=== PATIENT | male | born 1940 | race Caucasian/White ===

== ENCOUNTER → 2023-10-25 15:39 | Outpatient (REF) | payer MEDICARE, OTHER, SELFPAY | LOC: RCS 15:39 | PROVIDERS: ATTENDING PHYSICIAN Internal Medicine Cardiovascular Disease; FAMILY PHYSICIAN Family Medicine | DX: I05.9 Rheumatic mitral valve disease, unspecified (principal) | CPT/HCPCS: 93306 ==

== ENCOUNTER → 2024-01-10 08:35 | Outpatient (REF) | payer MEDICARE, OTHER, SELFPAY ==
[2024-01-10 12:47] LABS: ALT (SGPT) 20 U/L (0-50); AST (SGOT) 30 U/L (17-59); Albumin 3.9 g/dl (3.5-5.0); Alkaline Phosphatase 79 U/L (38-126); Blood Urea Nitrogen 36 mg/dl (9-20); Carbon Dioxide 28 mmol/L (22-30); Chloride 103 mmol/L (98-107); Glucose 125 mg/dl (70-99); HDL Cholesterol 58 mg/dl; LDL Cholesterol, Calculated 56 mg/dl; Potassium 4.2 mmol/L (3.5-5.1); Sodium 138 mmol/L (135-145); Total Bilirubin 0.6 mg/dl (0.2-1.3); Total Cholesterol 124 mg/dl (50-199); Triglyceride 52 mg/dl (10-149); Very Low Density Lipoprotein 10 mg/dl (0-30); eGFR 54.85
[2024-01-10 13:01] LABS: Microalbumin, Random Urine 9.7 mg/dl (0.6-1.7); Microalbumin/creatinine Ratio 104.1 mg/g
[2024-01-10 13:12] LABS: TSH 2.06 uIU/ml (0.47-4.68)
[2024-01-10 13:21] LABS: Glycohemoglobin (HgbA1c) 6.5 % (4.0-5.6)
== END ==
LOC: HWLAB 08:35
PROVIDERS: ATTENDING PHYSICIAN Family Medicine
DX: I12.9 Hypertensive chronic kidney disease with stage 1 through stage 4 chronic kidney disease, or unspecified chronic kidney disease (principal); N18.31 Chronic kidney disease, stage 3a; I50.9 Heart failure, unspecified; E78.00 Pure hypercholesterolemia, unspecified; I48.0 Paroxysmal atrial fibrillation; E11.59 Type 2 diabetes mellitus with other circulatory complications
CPT/HCPCS: 36415; 80053; 80061; 82043; 82570; 83036; 84443

== ENCOUNTER → 2024-02-21 11:52 | Outpatient (REF) | payer MEDICARE, OTHER, SELFPAY | LOC: HWRAD 11:52 | PROVIDERS: ATTENDING PHYSICIAN Family Medicine | DX: S20.211A Contusion of right front wall of thorax, initial encounter (principal); I48.0 Paroxysmal atrial fibrillation; I50.9 Heart failure, unspecified; W19.XXXA Unspecified fall, initial encounter | CPT/HCPCS: 71046; 71100 ==

== ENCOUNTER 2024-04-15 09:12 | Emergency (ER) | payer MEDICARE, OTHER, SELFPAY ==
[2024-04-15 09:15] VITALS: BP 126/91
--- NOTE | 2024-04-15 09:49 | ED.GENMED ---
History of Present Illness
General
Chief Complaint: Head Injury
Source: patient
Exam Limitations: none
Time Seen by Provider: 04/15/24 09:36
History of Present Illness
History of Present Illness:
83-year-old male on [place] presents after trip and fall. He was on his way into the car knocker office to get his toenails cut. He hit his head on the sidewalk. No loss conscious. He denies headache or neck pain. He scraped his forehead and his
right hand. No other complaints at this time
Past History
Past History
ED Past Medical History: Arrthythmia, COPD, CVA (with Aphasia), HTN, Hypercholesterolemia (Diet-controlled), Valvular disease and Other (Macular degeneration, aortic stenosis)
ED Past Surgical History: Cardiac (Valve replacement) and Other (Cardiac catheterization in April 2012)
Social History
Tobacco: Former smoker
Alcohol: Occasional
Drug: None
Personal:
Living: with family
Employment: Employed
Phy Exam
Physical Exam
Physical Exam:
General: Well-appearing male no acute respiratory distress
HEENT: Normocephalic superficial abrasion noted to the right side of the forehead. Mild surrounding ecchymosis. Pupils equal round reactive to light
Heart: Regular rate and rhythm
Lungs: Clear no wheeze
Musculoskeletal exam: The spine is nontender. The right wrist is nontender the hand is not deformed or tender.
Neurologic exam: Alert and oriented no facial asymmetry conversing appropriately
Course
Orders/Labs/Results
Orders:
Orders
04/15/24 09:[address] [CT Head W/o Iv Contrast] Urgent
Comment:
Reason For Exam: fall, head strike
Vital Signs
Initial and Last Documented VS:
Initial Vital Signs
Temp Pulse Resp BP Pulse Ox
97.7 F 60 16 126/91 98
04/15/24 09:15 04/15/24 09:15 04/15/24 09:15 04/15/24 09:15 04/15/24 09:15
Last Documented Vital Signs
Temp Pulse Resp BP Pulse Ox
97.7 F 60 16 126/91 98
04/15/24 09:15 04/15/24 09:15 04/15/24 09:15 04/15/24 09:15 04/15/24 09:15
MDM/Problems Addressed
Differential Diagnosis Includes:
Mechanical fall head strike on Xarelto. Consider skull fracture first intracranial hemorrhage versus contusion. Also has a skin tear to the right hand. The abrasions on the forehead were irrigated and treated with a Band-Aid. The right hand skin
tear was also irrigated and dressed. CT of the head was ordered through triage which I reviewed personally and demonstrates no acute skull fracture or intracranial hemorrhage. Reassured patient and significant other. Stable for discharge
*Critical Care Note
Total Time (30-74mins, 75-104mins- exclusive of procedures): Not Applicable
ED Attending Note
-
Portions of this chart may have been created with voice recognition software.� Occasional wrong word or��sound alike� substitutions may have occurred due to the inherent limitations of voice recognition software.
Discharge Plan
Departure
Patient Disposition: Home (Routine Discharge)
Date of Disposition: 04/15/24
Time of Disposition: 09:53
Patient with high blood pressure during this ER visit?: No
Discharge Problem:
Contusion
Instructions: Contusion (DC)
Prescriptions:
No Action
Vision Formula (with lutein) 1 EACH tablet
1 ea PO BID
losartan 50 MG tablet
50 mg PO DAILY
amlodipine 5 MG tablet
5 mg PO DAILY
Xarelto 20 MG tablet
20 mg PO QPM
atorvastatin 40 MG tablet
40 mg PO QPM
aspirin 81 MG tablet,chewable
81 mg PO DAILY
ferrous sulfate 325 mg (65 mg iron) Tablet,Delayed Release (Dr/Ec)
325 mg PO DAILY
furosemide 40 MG tablet
40 mg PO QPM
ceftriaxone 2 gram Recon Soln
2,000 mg IV Q12H Qty: 0 0RF
metoprolol succinate 25 mg Tablet Extended Release 24 Hr
25 mg PO DAILY Qty: 30 0RF
Activity Restrictions/Additional Instructions:
Apply antibacterial into the wounds. Change dressing as needed. Use Tylenol if needed for pain. Return if worse otherwise follow-up with your doctor
Discharge Date and Time
Print Language: MAURITANIAN
[2024-04-15 10:26] VITALS: BP 136/78
== END 2024-04-15 10:26 | disposition home or self-care (01) ==
LOC: EMR 09:12
PROVIDERS: EMERGENCY PHYSICIAN Student in an Organized Health Care Education/Training Program; FAMILY PHYSICIAN Family Medicine
DX: S00.83XA Contusion of other part of head, initial encounter (principal); S61.411A Laceration without foreign body of right hand, initial encounter; S00.81XA Abrasion of other part of head, initial encounter; W01.0XXA Fall on same level from slipping, tripping and stumbling without subsequent striking against object, initial encounter; E78.00 Pure hypercholesterolemia, unspecified; I10 Essential (primary) hypertension; J44.9 Chronic obstructive pulmonary disease, unspecified; Z79.01 Long term (current) use of anticoagulants; I69.920 Aphasia following unspecified cerebrovascular disease; Z95.2 Presence of prosthetic heart valve; Z87.891 Personal history of nicotine dependence
CPT/HCPCS: 99284; 70450

== ENCOUNTER 2024-10-08 18:15 | Inpatient (IN) | payer MEDICARE, OTHER, SELFPAY ==
[2024-10-08] VITALS (11 sets, daily range): BP systolic 106–182; BP diastolic 50–79; PULSE 56; O2SAT 97; BMI 35.0; BMI 37.9
[2024-10-08 11:58] LABS: % Basophils 0.3 % (0-2); % Immature Granulocytes 0.5 % (0-0.5); % Lymphocytes 9.5 % (20.5-51.1); % Monocytes 9.3 % (1.7-9.3); % Neutrophils 80.4 % (42.2-75.2); Absolute Lymphocytes 0.7 10^3/uL (1.2-3.4); Absolute Monocytes 0.7 10^3/uL (0.1-0.6); Absolute Neutrophils 5.9 10^3/uL (1.4-6.5); Hematocrit 35.6 % (39.0-52.0); Hemoglobin 11.6 g/dL (13.0-18.0); Mean Corp Hgb Conc. 32.6 g/dL (33.0-37.0); Mean Corpuscular Hgb 31.3 pg (27.0-31.0); Mean Platelet Volume 9.5 fL (7.4-10.4); Nucleated Red Blood Cells % 0 % (-); Platelet Count 259 10^3/uL (130-400); Red Blood Cell Count 3.71 10^6/uL (4.70-6.10); White Blood Cell Count 7.4 10^3/uL (4.8-10.8)
[2024-10-08 12:09] LABS: ALT (SGPT) 14 U/L (0-50); AST (SGOT) 21 U/L (17-59); Albumin 3.5 g/dl (3.5-5.0); Alkaline Phosphatase 81 U/L (38-126); Blood Urea Nitrogen 20 mg/dl (9-20); Calcium 8.9 mg/dl (8.4-10.2); Carbon Dioxide 26 mmol/L (22-30); Chloride 111 mmol/L (98-107); Glucose 130 mg/dl (70-99); Potassium 4.2 mmol/L (3.5-5.1); Sodium 143 mmol/L (135-145); Total Bilirubin 1.1 mg/dl (0.2-1.3); Total Protein 6.6 g/dl (6.3-8.2); eGFR > 60.00
[2024-10-08 12:14] LABS: NT-proBNP 1480 pg/ml
--- NOTE | 2024-10-08 12:28 | ED.GENMED ---
History of Present Illness
General
Chief Complaint: Swelling
Source: patient and spouse
Exam Limitations: none
Time Seen by Provider: 10/08/24 12:09
History of Present Illness
History of Present Illness:
84yoM with a history of atrial fibrillation, CHF, coronary artery disease, hypertension, hyperlipidemia, COPD presenting with his for evaluation of bilateral knee pain. He has been having ongoing knee pain for at least 6 months. He has seen
orthopedics and received gel and steroid injections without any improvement. He was told at one point that he would need a knee replacement. He is scheduled to see Dr. Nolan in 2 days. He is taking Percocet without any relief and is having
significant trouble ambulating at this point due to his pain. He is also been experiencing bilateral leg swelling over the past week. He has prescribed Lasix 40 mg twice daily but states he is noncompliant at times. He denies any weight
gain, orthopnea, shortness of breath, cough.
Past History
Past History
ED Past Medical History: Arrthythmia, COPD, CVA (with Aphasia), HTN, Hypercholesterolemia (Diet-controlled), Valvular disease and Other (Macular degeneration, aortic stenosis)
ED Past Surgical History: Cardiac (Valve replacement) and Other (Cardiac catheterization in April 2012)
Social History
Tobacco: Former smoker
Alcohol: Occasional
Drug: None
Personal:
Living: with family
Employment: Employed
Phy Exam
General Physical Exam
General Presentation: well appearing and no apparent distress
General Skin: warm and dry
General Habitus: normal and elderly
General Mental: alert
ENT Exam
ENT Exam: normocephalic
Cardiovascular Exam
Cardiovascular Exam: normal peripheral pulses (2+ DP pulses bilaterally), bradycardia, irregularly irregular and other (2-3+ pitting edema to bilateral lower extremities)
Pulmonary Exam
Pulmonary Exam: lungs clear, no respiratory distress, no rales, no crackles, no rhonchi and no wheezing
Neurological Exam
Neurological Exam: alert
[place] Coma Scale
Eye Opening: Spontaneous
Verbal Response: Oriented
Motor Response: Obeys Commands
GCS Total Score: 15
Musculoskeletal Exam
Musculoskeletal Exam: other (Mild swelling noted to R knee. No erythema or warmth. ROM of both knees intact. )
Skin Exam
Skin Exam: warm/dry
Psychiatric Exam
Psychiatric Exam: normal mood/affect
Scores
Heart Failure Risk
Heart Failure Risk Score: Not Applicable
Course
Orders/Labs/Results
Orders:
Orders
10/08/24 11:23
Complete Blood Count/With Diff Urgent
Comprehensive Metabolic Panel Urgent
NT-proBNP Urgent
10/08/24 12:26
Oxycodone/Acetaminophen [Percocet 5/325] 1 tablet PO NOW STA
CR Knee - Left 4 Or More View* Urgent
Comment:
Reason For Exam: pain
CR Knee- Right 4 Or More View* Urgent
Comment:
Reason For Exam: pain
10/08/24 12:27
CR Chest - 2 Views Urgent
Comment:
Reason For Exam: leg swelling
10/08/24 13:43
Pt Eval And Treat Urgent
Activity Level: Out of Bed- Ad Katty
10/08/24 14:08
Electrocardiogram (*1) Urgent
Reason for Study: Bradycardia / Tachycardia
EKG- Treatment ONCE
10/08/24 16:30
Furosemide [Lasix] 40 mg IV NOW STA
10/08/24 17:09
Admit/Transfer Patient As Directed
Co-Sign Provider:
Level of Care: Inpatient admission
Assign to:: Telemetry
Physician / Group: Chanelel
Diagnosis: CHF exacerbation
Reason for Telemetry: Acute Heart Failure
Date to Stop Telemetry: 10/11/24
Time to Stop Telemetry: 11:00
Reason for Hospitalization: IV Lasix, cardio consult
Expected length of stay greater than two midnights?: Yes
ELOS- Estimated Length of Stay in days: 3
I certify the patient meets the requirements for IP care: Yes
PRN Pain Medication Management As Directed
May give lesser potent ordered pain med per pt: Yes
preference::
Protocol:: Medication orders for pain may be administered in a
manner that supports deferring to patient preference
when the pt is:
- Requesting an ordered lesser potent pain medication.
Least to most potent pain medications are defined
as: acetaminophen < NSAID < tramadol < opioids
(morphine, oxycodone, hydromorphone).
- Requesting a lesser dose of the same medication IF
ORDERED.
- Requesting a less intrusive route of administration
if both routes are prescribed by the provider (PO <
IV).
10/08/24 17:11
Code Status As Directed
Resuscitation Status: Do not resuscitate
Reached after discussion with pt or family/Healthcare POA: Yes
DNR Bracelet Application ONCE
10/11/24 11:00
DC Protocol for Telemetry ONCE
Abnormal Lab Results
10/08/24
11:23
RBC 3.71 L 10^6/uL
(4.70-6.10)
Hgb 11.6 L g/dL
(13.0-18.0)
Hct 35.6 L %
(39.0-52.0)
MCV 96.0 H fL
(80.0-94.0)
MCH 31.3 H pg
(27.0-31.0)
MCHC 32.6 L g/dL
(33.0-37.0)
Absolute Lymphs (auto) 0.7 L 10^3/uL
(1.2-3.4)
Absolute Monos (auto) 0.7 H 10^3/uL
(0.1-0.6)
Neutrophils % 80.4 H %
(42.2-75.2)
Lymphocytes % 9.5 L %
(20.5-51.1)
Chloride 111 H mmol/L
(98-107)
Glucose 130 H mg/dl
(70-99)
10/08/24 11:23
10/08/24 11:23
Vital Signs
Initial and Last Documented VS:
Initial Vital Signs
Temp Pulse Resp BP Pulse Ox
97.9 F 68 18 140/50 96
10/08/24 11:11 10/08/24 11:11 10/08/24 11:11 10/08/24 11:11 10/08/24 11:11
Last Documented Vital Signs
Temp Pulse Resp BP Pulse Ox
97.9 F 55 20 150/61 95
10/08/24 11:11 10/08/24 18:00 10/08/24 18:00 10/08/24 18:00 10/08/24 18:00
MDM/Problems Addressed
Differential Diagnosis Includes:
84yoM here with bilateral leg swelling and worsening bilateral knee pain with difficulty ambulating. There is 2-3+ pitting edema noted to bilateral lower extremities. DP pulses palpable. Differential diagnosis includes but is not limited to: CHF
exacerbation, dependent edema, osteoarthritis, doubt DVT given bilateral symptoms and he is anticoagulated
Initial ED plan: Check CBC, CMP, BNP, CXR, and bilateral knee x-rays. Percocet for pain. Will consult PT.
*EKG
Interpreted by ED Provider?: Yes
EKG Intrepretation Date: 10/08/24
Heart Rate: 53
Rate: bradycardiac
Rhythm: a-fib
[place]: left axis deviation
Interval: normal interval
QRS Pattern: normal QRS
Ischemia: no ischemia
*Critical Care Note
Total Time (30-74mins, 75-104mins- exclusive of procedures): Not Applicable
Update Note
Update Note:
BNP 1480. Renal function stable. No pulmonary edema on CXR. Knee x-rays show osteoarthritis. Patient bradycardic throughout ED course with HR in the 50s. HR intermittently drops to the 30-40 range. BP stable and he denies dizziness. EKG added which
shows slow afib without heart block. 40mg IV Lasix ordered and patient admitted for further management.
ED Attending Note
-
Portions of this chart may have been created with voice recognition software.� Occasional wrong word or��sound alike� substitutions may have occurred due to the inherent limitations of voice recognition software.
Discharge Plan
Departure
Patient Disposition: Admit
Date of Disposition: 10/08/24
Time of Disposition: 16:33
Presentation/result/management discussed w/ accepting MD/DO: Hospitalist
Discharge Problem:
Acute exacerbation of CHF (congestive heart failure), Bradycardia
Interventions
Interventions:
*Risk Screen - Suicide Last Done: 10/08/24 11:11
*General Assessment Last Done: 10/08/24 13:08
*Neglect/Abuse Screening Last Done: 10/08/24 11:11
*ED- Fall Risk Assessment Last Done: 10/08/24 13:08
*ED COVID-19 Vaccine History Last Done: 10/08/24 13:08
*Nursing Disposition Last Done: 10/08/24 18:22
ED- Cardiac Assessment Last Done: 10/08/24 13:12
ED- Pulmonary Assessment Last Done: 10/08/24 13:12
ED-Skin Assessment Last Done: 10/08/24 13:12
Discharge Date and Time
Discharge Date/Time: 10/08/24 18:22
[2024-10-08] MEDS: PERCOCET 5/325 1 TABLET PO (13:04)
--- NOTE | 2024-10-08 15:54 | EDRN ---
PT in room w/pt at this time.
--- NOTE | 2024-10-08 16:50 | EDRN ---
hvac controls technician Marissa was in to do med rec w/ pt and spouse.
--- NOTE | 2024-10-08 16:50 | EDRN ---
Pt OOB to BR at this time w/ walker, Minimal assist.
--- NOTE | 2024-10-08 16:55 | EDRN ---
Dr. Stevenson in room w/pt at this time.
--- NOTE | 2024-10-08 17:13 | HPS.HSE ---
Family Physician
-
Family Physician: Kana Farias
Chief Complaint
-
Lower extremity swelling, bilateral knee pain
History of Present Illness
84-year-old male with increasing bilateral lower extremity edema and difficulty ambulating with bilateral knee pain. Symptoms have been progressing for the past few weeks. He is a poor historian and he is accompanied by his .
Recently came back up here from [place] and has had difficulty going up and down steps in his home.
Denies chest pain or shortness of breath.
Does sleep in a recliner as he is uncomfortable lying down flat. However, denies orthopnea.
Medical History
Past Medical History
Past Medical History: Reports Other
Additional Past Medical History:
Permanent atrial fibrillation
Diastolic heart failure
CAD
Essential hypertension
Hyperlipidemia
COPD
Stroke
Aortic stenosis
DM2
NAYAN
GERD
Vascular dementia
Past Surgical History: Reports Other
Additional Past Surgical History:
TAVR
Social History
Tobacco: Former Smoker
Alcohol: Occasional
Drug: None
Personal:
Living: With Family
Employment: Not Employed
Family History
Family History: Not pertinent
Allergies / Home Medications
Allergies reflects when Allergies were last updated in [facility].
Home Medications with original date entered in [facility]
Allergy/Medication List:
Allergies
Allergy/AdvReac Type Severity Reaction Status Date / Time
No Known Allergies Allergy Verified 10/08/24 11:15
Home Medications
amlodipine 5 mg tablet 5 mg PO DAILY Blood pressure 11/09/20
aspirin 81 mg chewable tablet 81 mg PO DAILY Blood clot prevention/tx 11/09/20
atorvastatin 40 mg tablet 40 mg PO DAILY High cholesterol 11/09/20
losartan 50 mg tablet 50 mg PO DAILY Blood pressure 11/09/20
rivaroxaban 20 mg tablet (Xarelto) 20 mg PO DAILY Blood clot prevention/tx 11/09/20
ferrous sulfate 325 mg (65 mg iron) tablet,delayed release 325 mg PO DAILY Supplement 03/28/22
furosemide 40 mg tablet 40 mg PO DAILY Heart Failure 03/28/22
metoprolol succinate 25 mg tablet,extended release 24 hr 25 mg PO DAILY #30 tabs 04/01/22
magnesium hydroxide 400 mg/5 mL oral suspension (Brand Milk of Magnesia) 800 mg PO DAILYPRN PRN constipation 10/08/24
memantine 5 mg tablet 5 mg PO DAILY 10/08/24
metformin 500 mg tablet 500 mg PO DAILY 10/08/24
oxycodone-acetaminophen 5 mg-325 mg tablet 1 tab PO Q6HPRN PRN severe pain 10/08/24
Review of Systems
-
History Source: Patient and Family
A 12 point ROS was completed and negative except as noted: Yes
Physical Exam
Vital Signs
Vital Signs
Temp Pulse Resp BP Pulse Ox
97.9 F 66 18 151/70 99
10/08/24 11:11 10/08/24 16:15 10/08/24 16:15 10/08/24 15:18 10/08/24 16:15
Physical Exam
General: Well Developed, Well Nourished, No Apparent Distress, Comfortable and Obese
HEENT: NormoCephalic, Anicteric and Moist mucous membranes
Respiratory: Clear
Cardiac: S1/S2 and Regular Rhythm
GI: Soft, Non Tender and Non Distended
Genito-urinary: Deferred by me
Musculoskeletal: No Clubbing, No Cyanosis, Edema, Left Lower Extremity and Edema, Right Lower Extremity
Skin: Warm, Dry and Other (Bilateral lower extremity hyperpigmentation)
Neuro: Awake, Alert and Oriented
Hematologic/Lymphatic: No Lymphadenopathy
Psych: Calm
Laboratory Results
-
10/08/24 11:23
10/08/24 11:23
Laboratory Results
Total Bilirubin 1.1 mg/dl (0.2-1.3) 10/08/24 11:23
AST 21 U/L (17-59) 10/08/24 11:23
ALT 14 U/L (0-50) 10/08/24 11:23
Alkaline Phosphatase 81 U/L (38-126) 10/08/24 11:23
Impression/Plan
-
Acute on chronic heart failure with preserved EF -with progressive bilateral lower extremity edema, difficulty ambulating. Not compliant with home Lasix. BNP 1480.
Admit to telemetry. Consult cardiology. Continue IV Lasix. No significant pulmonary edema noted on chest x-ray.
Bilateral lower extremity venous stasis dermatitis -elevate legs. Compression therapy with Dhaval wraps. Discussed with patient and . Weight loss will be helpful.
Permanent atrial fibrillation -continue Xarelto.
Hyperlipidemia -atorvastatin.
CAD -stable.
DM 2 without hyperglycemia -he takes metformin at home. Check hemoglobin A1c. Hold metformin, use low resistance NovoLog scale.
Essential hypertension
COPD without exacerbation
History of stroke
Vascular dementia
NAYAN
Chronic anemia -hemoglobin at baseline.
Ambulatory dysfunction -worsened by lower extremity edema, severe osteoarthritis of knees. Consult PT/OT. If edema improves then ambulation should improve as well.
Obesity due to excess calories
DNR -confirmed with patient and .
Updated at the bedside.
[2024-10-08] MEDS: LASIX 40 MG IV (17:53)
[2024-10-08 23:34] LABS: Glucose - Point of Care 113 mg/dl (70-99)
[2024-10-09] VITALS (7 sets, daily range): BP systolic 124–168; BP diastolic 58–68; PULSE 59; O2SAT 95; BMI 36.8
[2024-10-09 07:11] LABS: Blood Urea Nitrogen 18 mg/dl (9-20); Calcium 8.8 mg/dl (8.4-10.2); Carbon Dioxide 28 mmol/L (22-30); Chloride 110 mmol/L (98-107); Estimated Creatinine Clearance 63 ml/min; Glucose 113 mg/dl (70-99); Potassium 4.2 mmol/L (3.5-5.1); Sodium 143 mmol/L (135-145); eGFR > 60.00
[2024-10-09 08:15] LABS: Glucose - Point of Care 113 mg/dl (70-99)
[2024-10-09] MEDS: NOVOLOG FLEXPEN-LOW RESISTANCE SC ×2 (08:19→17:20)
[2024-10-09 09:05] LABS: Glycohemoglobin (HgbA1c) 6.4 % (4.0-5.6)
[2024-10-09] MEDS: LOW STRENGTH ASPIRIN 81 MG PO (09:15)
[2024-10-09] MEDS: LASIX 40 MG IV ×2 (09:15→15:37)
[2024-10-09] MEDS: TOPROL XL 25 MG PO (09:15)
[2024-10-09] MEDS: NORVASC 5 MG PO (09:15)
[2024-10-09] MEDS: LIPITOR 40 MG PO (09:15)
[2024-10-09] MEDS: NAMENDA 5 MG PO (09:16)
[2024-10-09] MEDS: COZAAR 50 MG PO (09:16)
[2024-10-09] MEDS: FEOSOL 325 MG PO (09:16)
[2024-10-09] MEDS: XARELTO 20 MG PO (09:16)
--- NOTE | 2024-10-09 09:25 | W.PN.HOSP.TC ---
Today's Communication/Plan
-
IV Lasix
Compression therapy
Echocardiogram
Assessment / Plan
Assessment / Plan
Gen-AAOx3, NAD
HEENT-NC, AT, anicteric, clear oral mm
Neck-supple
CV-reg, no M, +S1/S2
Lungs-clear B/L
Abd-soft, NT, ND
Ext-bilateral lower extremity edema, improving
Musculoskeletal-no cyanosis, clubbing
Skin-warm and dry
Neuro-grossly non-focal
Psych-calm, cooperative
Acute on chronic heart failure with preserved EF -with progressive bilateral lower extremity edema, difficulty ambulating. Not compliant with home Lasix. BNP 1480.
Lower extremity edema improving, weight coming down. Continue elevation and compression therapy, IV Lasix. Awaiting cardiology input.
Check echocardiogram.
Bilateral lower extremity venous stasis dermatitis -elevate legs. Compression therapy with Dhaval wraps. Discussed with patient and . Weight loss will be helpful.
Permanent atrial fibrillation -continue Xarelto.
Hyperlipidemia -atorvastatin.
CAD -stable.
DM 2 without hyperglycemia -he takes metformin at home. Hemoglobin A1c 6.4%. Hold metformin, use low resistance NovoLog scale.
Essential hypertension -stable.
COPD without exacerbation
History of stroke
Vascular dementia
NAYAN
Chronic anemia -hemoglobin at baseline.
Ambulatory dysfunction -worsened by lower extremity edema, severe osteoarthritis of knees. Consult PT/OT. If edema improves then ambulation should improve as well.
Obesity due to excess calories
DNR -confirmed with patient and .
Dispo -likely discharge home tomorrow if stable. Discussed with cardiology.
Anticipated Discharge: Within 24 hours
Subjective/Interval History
-
Date of Service: October 09, 2024
Patient seen and examined. No new complaints.
Objective Data
-
Labs:
Laboratory Results
10/09/24
05:54
Sodium 143
Potassium 4.2
Chloride 110 H
Carbon Dioxide 28
BUN 18
Creatinine 1.1
Glucose 113 H
Calcium 8.8
Vital Signs:
Vital Signs
Temp Pulse Resp BP Pulse Ox
98.5 F 65 18 148/66 96
10/09/24 06:57 10/09/24 06:57 10/09/24 06:57 10/09/24 06:57 10/09/24 06:57
I&O
10/08/24 10/09/24 10/10/24
06:59 06:59 06:59
Output Total 2375 / 2375
Balance -2375 / -2375
Review of Systems
-
History Source: Patient
All other systems: Reviewed and negative
--- NOTE | 2024-10-09 09:57 | CON.CAR ---
Addendum entered and electronically signed by Dangelo Munoz MD 10/09/24 14:09:
I saw and examined the patient.
The Central Service Supply Distributor's note was reviewed and I agree with the note.
Comment: Briefly, 84-year-old man past medical history of heart failure with preserved ejection fraction and permanent atrial fibrillation who presents with worsening lower extremity edema and knee pain found to be in acute decompensated heart
failure.
At the time my evaluation this morning patient was resting comfortably out of bed to chair
Received a dose of IV Lasix yesterday evening and tells me that his lower extremity edema is significantly improved
Still appears mildly volume overloaded on exam, but not requiring supplemental oxygen
Would give IV Lasix twice daily today
Follow weights, renal function and electrolytes
Check echo
Hopefully can transition back to oral Lasix in the next 24 to 48 hours. Previously prescribed 40 mg daily of Lasix but it sounds like he was not reliably taking this.
Patient with known permanent atrial fibrillation and has been bradycardic here
Agree with holding beta-maxi and monitoring heart rate on telemetry
Continue Xarelto
Discussed with hospital medicine
Original Note:
Consultation
Consultation Request
Date/Time Consultation Requested: 10/08/24 at 1846
Date/Time Consultation Performed: 10/09/24 at 0957
Requesting Provider: Dr. Roca
Performing Provider: Dr. Munoz
Reason for Consultation: CHF
Medical History
-
History of Present Illness:
Patient came to the ER yesterday with LE edema and knee pain and was admitted with acute HF and consultation to cardiology. Patient was spending time in [place] with his and about 2-3 weeks ago started with increased LE edema and then increased
knee pain. Legs have been heavy and knees hurting to bend and so he missed a curb and tripped fell 2 weeks ago. Patient was seen at an ER in [place] and given oxycodone to help with the pain and is scheduled to see ortho for ongoing arthritis later
this week. Patient came to the ER yesterday because of ongoing pain and he could no longer manage at home. Patient has known HFpEF and missed his Lasix frequently at home. Denies SOB, orthopnea or bloating. Denies chest pain. Patient also has
permanent Afib and is chronically on Toprol XL 25 mg daily and was noted to be bradycardic since admission, but no lightheadedness.
PMH:
Chronic HFpEF
Medication noncompliance
Permanent Afib with controlled to slow ventricular response
Chronic Xarelto OAC
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
completed a 6 week course of antibiotics
h/o severe s/p TAVR 2016
h/o left MCA territory CVA at time of TAVR 2016
HTN
HLD
NAYAN on CPAP
Past Medical History
Past Medical History: Other (In HPI)
Past Surgical History: Cardiac (TAVR 05/25/2017) and Other (L external iliac artery repair )
Social History
Tobacco: Non-Smoker
Alcohol: Occasional
Drug: None
Personal:
Living: With Family
Employment: Retired
Family History
Family History: Cancer
Allergies / Home Medications
Allergy/AdvReac Type Severity Reaction Status Date / Time
No Known Allergies Allergy Verified 10/08/24 11:15
�Medication �Instructions �Recorded �Confirmed �Type
amlodipine 5 mg tablet 5 mg PO DAILY Blood pressure 11/09/20 10/08/24 History
aspirin 81 mg chewable tablet 81 mg PO DAILY Blood clot 11/09/20 10/08/24 History
prevention/tx
atorvastatin 40 mg tablet 40 mg PO DAILY High cholesterol 11/09/20 10/08/24 History
losartan 50 mg tablet 50 mg PO DAILY Blood pressure 11/09/20 10/08/24 History
rivaroxaban 20 mg tablet (Xarelto) 20 mg PO DAILY Blood clot 11/09/20 10/08/24 History
prevention/tx
ferrous sulfate 325 mg (65 mg 325 mg PO DAILY Supplement 03/28/22 10/08/24 History
iron) tablet,delayed release
furosemide 40 mg tablet 40 mg PO DAILY Heart Failure 03/28/22 10/08/24 History
metoprolol succinate 25 mg 25 mg PO DAILY #30 tabs 04/01/22 10/08/24 Rx
tablet,extended release 24 hr
magnesium hydroxide 400 mg/5 mL 800 mg PO DAILYPRN PRN constipation 10/08/24 10/08/24 History
oral suspension (Brand Milk of
Magnesia)
memantine 5 mg tablet 5 mg PO DAILY 10/08/24 10/08/24 History
metformin 500 mg tablet 500 mg PO DAILY Diabetes 10/08/24 10/08/24 History
oxycodone-acetaminophen 5 mg-325 1 tab PO Q6HPRN PRN severe pain 10/08/24 10/08/24 History
mg tablet
Review of Systems
-
History Source: Patient
All other systems: Negative unless noted
Physical Exam
Vital Signs
Temp Pulse Resp BP Pulse Ox
98.5 F 65 18 148/66 96
10/09/24 06:57 10/09/24 09:15 10/09/24 06:57 10/09/24 09:15 10/09/24 06:57
GEN: NAD, AAOx3
HEENT: EOMI
LUNGS: RA. Clear anterolaterally without rales
CV: Afib on tele. Irreg irreg, S1/S2, 06/03 syst LSB
ABD: soft, BS+, NT, ND
EXT: +1 B/L LE edema
NEURO: Gross non-focal
SKIN: No rash
Lab Results
10/08/24 11:23
10/09/24 05:54
Wtg-D-Toptwlhtryz Pept 1480 pg/ml 10/08/24 11:23
Impression / Plan
-
PCP: Dr. Farias
Neon Sign Erector: Dr. Paul
Impression:
Admitted with knee pain and acute HF 10/08/24
Acute on chronic HFpEF
Medication noncompliance
Permanent Afib with controlled to slow ventricular response
Chronic Xarelto OAC
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
completed a 6 week course of antibiotics
h/o severe s/p TAVR 2016
h/o left MCA territory CVA at time of TAVR 2016
HTN
HLD
NAYAN on CPAP
Echo 03/09/2021: EF 55-60%, mild cLVH, at least mild-moderate MR, s/p TAVR with peak/mean gradients 31/17 mmHg, trace AI
Echo 03/28/2022: EF 55-60%, thickened mitral valve leaflets with adequate mitral leaflet excursion, mobile echo density seen on the posterior leaflet.�Mod MR. s/p #26 Pritchard Clarissa 3 TAVR which is well�seated, peak/mean 34/20 mmHg, no aortic
regurgitation, vegetation cannot be excluded. Mild TR. Estimated�pulmonary artery pressure of 40-45 mmHg assuming a right atrial pressure of 8�mmHg.
QUINCY 03/31/22: EF 50-55%, no clear thrombus, mod central MR, small calcified MV mobile echodensity which likely represents vegetation in the P1/P2 area of the posterior leaflet, possibly subacute, Pritchard TAVR with mild, thickening, mild aortic
regurgitation present and no clear vegetation on the valve.
Echo 10/25/23: EF 55%, no WMA, stage III diastolic dysfunction, mid MS with mean gradient 3 mmHg, mild MR, s/p TAVR with mean gradient 19 mmHg, mild TR with PAP 44 mmHg
Plan:
-Patient came to the ER yesterday with LE edema and knee pain and was admitted with acute HF and consultation to cardiology. Patient was spending time in [place] with his and about 2-3 weeks ago started with increased LE edema and then
increased knee pain. Legs have been heavy and knees hurting to bend and so he missed a curb and tripped fell 2 weeks ago. Patient was seen at an ER in [place] and given oxycodone to help with the pain and is scheduled to see ortho for ongoing
arthritis later this week. Patient came to the ER yesterday because of ongoing pain and he could no longer manage at home. Patient has known HFpEF and missed his Lasix frequently at home. Denies SOB, orthopnea or bloating. Denies chest pain. Patient
also has permanent Afib and is chronically on Toprol XL 25 mg daily and was noted to be bradycardic since admission, but no lightheadedness.
-ECG reviewed by me and patient is Afib with slow ventricular response.
-Patient with acute HF in the setting of Lasix noncompliance. Patient reports subjective improvement with initial Lasix 40 mg IV daily diuresis. Patient was supposed to be taking Lasix 40 mg PO daily prior to admission. Will give an extra dose of
Lasix 40 mg IV this afternoon as patient reports he is leaving tomorrow no matter what.
-Check echo, EF was stable at echo last year, but previous TAVR and previous MV vegetation.
-Patient with h/o MV endocarditis in 2021 and completed 6 weeks of antibiotics. He also uses antibiotic prophylaxis for dental visits. No signs/symptoms of recurrent endocarditis. Check echo as noted.
-Outpatient dose of Toprol XL 25 mg daily was continued upon admission, but patient noted to be bradycardic at times. No reports of lightheadedness. Will hold Toprol XL tomorrow morning.
-Outpatient dose of losartan 50 mg daily has been continued.
-Patient is not chronically on aldosterone antagonist or SGLT-2 inhibitor and is not interested in additional medications at this time.
-Patient with known permanent Afib. Outpatient dose of Toprol XL on hold now due to asymptomatic bradycardia.
-Outpatient dose of Xarelto 20 mg daily (CrCl is 63 adjusted for height as calculated by me 10/09/24)
[2024-10-09 11:59] LABS: Glucose - Point of Care 194 mg/dl (70-99)
[2024-10-09] MEDS: NOVOLOG FLEXPEN-LOW RESISTANCE 1 UNITS SC (12:30)
--- NOTE | 2024-10-09 15:26 | CM ---
Alert awake oriented patient who lives with his Veronica who lives in a 1 story home with 1 step to enter.He is independent in all activities of daily living.He was offered VN he declined need.He uses walker.
[facility] care VN hx / No SNF history
Pharmacy [facility]
PCP DR Farias
PLAN Home Declined VN
[2024-10-09 17:04] LABS: Glucose - Point of Care 96 mg/dl (70-99)
[2024-10-09 21:28] LABS: Glucose - Point of Care 116 mg/dl (70-99)
[2024-10-10 03:35] VITALS: BP 131/64
[2024-10-10 06:00] VITALS: BMI 36.1
[2024-10-10 07:17] LABS: Blood Urea Nitrogen 19 mg/dl (9-20); Calcium 8.6 mg/dl (8.4-10.2); Carbon Dioxide 26 mmol/L (22-30); Chloride 108 mmol/L (98-107); Estimated Creatinine Clearance 69 ml/min; Glucose 114 mg/dl (70-99); Potassium 4.1 mmol/L (3.5-5.1); Sodium 141 mmol/L (135-145); eGFR > 60.00
[2024-10-10 07:28] VITALS: BP 146/69
[2024-10-10] MEDS: NOVOLOG FLEXPEN-LOW RESISTANCE SC ×2 (07:53→11:49)
[2024-10-10 07:54] LABS: Glucose - Point of Care 136 mg/dl (70-99)
[2024-10-10] MEDS: COZAAR 50 MG PO (09:00)
[2024-10-10] MEDS: LASIX 40 MG IV (09:05)
[2024-10-10] MEDS: NORVASC 5 MG PO (09:05)
[2024-10-10] MEDS: FEOSOL 325 MG PO (09:05)
[2024-10-10] MEDS: LIPITOR 40 MG PO (09:05)
[2024-10-10] MEDS: XARELTO 20 MG PO (09:05)
[2024-10-10] MEDS: LOW STRENGTH ASPIRIN 81 MG PO (09:05)
[2024-10-10] MEDS: NAMENDA 5 MG PO (09:06)
--- NOTE | 2024-10-10 09:07 | CARDSERVLU ---
Echocardiogram with Lumason completed after protocol screening completed. Allergies verified.
Patent IV site: __RAC___
IV site flushed with 0.9% NaCl pre and post administration.
Diluted bolus method utilized to enhance visualization of ventricular sawyer.
Total volume given: __4__ mL
Patient tolerated all procedures well without complications.
--- NOTE | 2024-10-10 10:07 | W.PN.HOSP.TC ---
Addendum entered and electronically signed by Jadon Roca DO 10/10/24 11:40:
I spoke with Dr. Sanchez from cardiology.
Stable for discharge.
Continue Lasix 40 mg daily on discharge. Stop metoprolol on discharge due to bradycardia.
Outpatient follow-up.
Original Note:
Today's Communication/Plan
-
Await cardiology input
Assessment / Plan
Assessment / Plan
Gen-AAOx3, NAD
HEENT-NC, AT, anicteric, clear oral mm
Neck-supple
CV-reg, no M, +S1/S2
Lungs-clear B/L
Abd-soft, NT, ND
Ext-bilateral lower extremity edema, improving
Musculoskeletal-no cyanosis, clubbing
Skin-warm and dry
Neuro-grossly non-focal
Psych-calm, cooperative
Acute on chronic heart failure with preserved EF -with progressive bilateral lower extremity edema, difficulty ambulating. Not compliant with home Lasix. BNP 1480.
Lower extremity edema improving, weight coming down. Continue elevation and compression therapy, IV Lasix. Awaiting cardiology input.
Echo shows normal LV chamber size and systolic function, EF 60 to 65%. Normal regional wall motion. Mild concentric LVH, diastolic function indeterminate.
Bilateral lower extremity venous stasis dermatitis -elevate legs. Compression therapy with Dhaval wraps. Discussed with patient and . Weight loss will be helpful.
Permanent atrial fibrillation -continue Xarelto. Metoprolol on hold for bradycardia.
Hyperlipidemia -atorvastatin.
CAD -stable.
DM 2 without hyperglycemia -he takes metformin at home. Hemoglobin A1c 6.4%. Hold metformin, use low resistance NovoLog scale.
Essential hypertension -stable.
COPD without exacerbation
History of stroke
Vascular dementia
NAYAN
Chronic anemia -hemoglobin at baseline.
Ambulatory dysfunction -worsened by lower extremity edema, severe osteoarthritis of knees. Consult PT/OT. If edema improves then ambulation should improve as well.
Obesity due to excess calories
DNR -confirmed with patient and .
Dispo -stable for discharge if okay with cardiology.
Anticipated Discharge: Today
Subjective/Interval History
-
Date of Service: October 10, 2024
Patient seen and examined. No complaints. Eager to go home.
Objective Data
-
Labs:
Laboratory Results
10/10/24
05:38
Sodium 141
Potassium 4.1
Chloride 108 H
Carbon Dioxide 26
BUN 19
Creatinine 1.0
Glucose 114 H
Calcium 8.6
Vital Signs:
Vital Signs
Temp Pulse Resp BP Pulse Ox
98.6 F 61 20 125/54 96
10/10/24 07:28 10/10/24 09:00 10/10/24 07:28 10/10/24 09:00 10/10/24 07:28
I&O
10/09/24 10/10/24 10/11/24
06:59 06:59 06:59
Intake Total 680 / 680
Output Total 2375 / 2375 1375 / 1375
Balance -2375 / -2375 -695 / -695
Review of Systems
-
History Source: Patient
All other systems: Reviewed and negative
[2024-10-10 11:35] VITALS: PULSE 62; O2SAT 96
--- NOTE | 2024-10-10 11:39 | W.DS.TRANS ---
DC Summary - Power Plant Assistant
-
Discharge Instructions:
Discharge Diagnosis/Procedures Congestive heart failure, venous stasis
dermatitis of legs
Diet 2 Gram Sodium,Restrict fluids to 64 oz
Activity As tolerated
Driving Restrictions As prior to admission
Bathing Restrictions None
Specialty Instructions Weigh Daily
Instructions: *PCP/Other Service Desk Team Lead Heart Failure Instructions
Stand-Alone Forms:
Changes to Home Medications: Yes
Discharge Medications:
DC Medications w/original date entered in [employer]
amlodipine 5 mg tablet 5 mg PO DAILY Blood pressure 11/09/20
aspirin 81 mg chewable tablet 81 mg PO DAILY Blood clot prevention/tx 11/09/20
atorvastatin 40 mg tablet 40 mg PO DAILY High cholesterol 11/09/20
losartan 50 mg tablet 50 mg PO DAILY Blood pressure 11/09/20
rivaroxaban 20 mg tablet (Xarelto) 20 mg PO DAILY Blood clot prevention/tx 11/09/20
ferrous sulfate 325 mg (65 mg iron) tablet,delayed release 325 mg PO DAILY Supplement 03/28/22
furosemide 40 mg tablet 40 mg PO DAILY Heart Failure 03/28/22
magnesium hydroxide 400 mg/5 mL oral suspension (Brand Milk of Magnesia) 800 mg PO DAILYPRN PRN constipation 10/08/24
memantine 5 mg tablet 5 mg PO DAILY 10/08/24
metformin 500 mg tablet 500 mg PO DAILY Diabetes 10/08/24
oxycodone-acetaminophen 5 mg-325 mg tablet 1 tab PO Q6HPRN PRN severe pain 10/08/24
Home Medication Changes
Stop metoprolol
Pending Results: No
[2024-10-10 11:46] VITALS: BP 154/56
[2024-10-10 11:48] LABS: Glucose - Point of Care 113 mg/dl (70-99)
--- NOTE | 2024-10-10 13:30 | CM ---
CM reviewed chart, patient seen with , for discharge today. IMM reviewed, signed, placed in chart. Patient plan remains home, no needs.
Plan; home with , no needs.
--- NOTE | 2024-10-10 16:49 | W.PN.CARDCBS ---
Addendum entered and electronically signed by Amena Sanchez DO 10/10/24 18:02:
I saw and examined the patient.
The Elevator Troubleshooter's note was reviewed and I agree with the note.
Comment: Patient was seen and examined; chart/telemetry reviewed. Offers no new complaints and request discharge home today. is present.
General: AOA x 3Out of bed to chair on room air. Observed ambulating with PT using walker and reportedly did well with trial of steps. NAD.
Heart: Irregularly irregular. Positive S1-S2. 2/6 SM
Lungs: Bronchovesicular breath sounds decreased at the bases but otherwise clear
Abd: Positive BS, NT/ND, neg rebound/rigidity/guarding
Ext: ++ RLE> +1 LLE edema With Tubigrip's
Plan:
Patient admitted with acute on chronic heart failure with preserved ejection fraction, secondary to Lasix noncompliance preceding admission
- Patient is very anxious to go home. He and his understand risk of readmission or further decompensation for medication/Lasix noncompliance, high salt diet or failure to monitor symptoms
- Since he was previously not taking Lasix at home we will start with 40 mg of oral Lasix daily and monitor heart failure symptoms/weights
- Per weight record, -19 pounds this admission. Discharge weight 244 pounds
- Will continue outpatient dose of losartan 50 mg daily. Consider outpatient addition of Aldactone and/or SGLT2 inhibitor. He was not interested in making additional changes to his medications at this time
- He declined VNA. Will arrange for close outpatient cardiac follow-up in our office to reassess
History of permanent atrial fibrillation
- Bradycardia noted on telemetry and Toprol-XL was discontinued
- We discussed sleep apnea and strongly advised CPAP compliance
- Continue Xarelto 20 mg daily
Hypertension/pulmonary hypertension
- Blood pressure under fair control
- Consider current management and consider addition of aldosterone as an outpatient.
History of TAVR 2016, history of mitral valve endocarditis in 2021-no active issues this admission. Echocardiogram 10/10/2024 with well-seated TAVR with mean gradient 18 mmHg which is stable when compared to study done in 2023. Mitral valve was
reported thickened with trace mitral regurgitation. EF 60 to 65%.
Stable for discharge home
Original Note:
Today's Communication / Plan
-
Lasix 40 mg PO daily
Impression / Plan
-
PCP: Dr. Farias
Event Marketing Representative: Dr. Paul
Impression:
Admitted with knee pain and acute HF 10/08/24
Acute on chronic HFpEF
Medication noncompliance
Permanent Afib with controlled to slow ventricular response
Chronic Xarelto OAC
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
completed a 6 week course of antibiotics
h/o severe s/p TAVR 2016
h/o left MCA territory CVA at time of TAVR 2016
HTN
HLD
NAYAN on CPAP
Echo 03/09/2021: EF 55-60%, mild cLVH, at least mild-moderate MR, s/p TAVR with peak/mean gradients 31/17 mmHg, trace AI
Echo 03/28/2022: EF 55-60%, thickened mitral valve leaflets with adequate mitral leaflet excursion, mobile echo density seen on the posterior leaflet.�Mod MR. s/p #26 Pritchard Clarissa 3 TAVR which is well�seated, peak/mean 34/20 mmHg, no aortic
regurgitation, vegetation cannot be excluded. Mild TR. Estimated�pulmonary artery pressure of 40-45 mmHg assuming a right atrial pressure of 8�mmHg.
QUINCY 03/31/22: EF 50-55%, no clear thrombus, mod central MR, small calcified MV mobile echodensity which likely represents vegetation in the P1/P2 area of the posterior leaflet, possibly subacute, Pritchard TAVR with mild, thickening, mild aortic
regurgitation present and no clear vegetation on the valve.
Echo 10/25/23: EF 55%, no WMA, stage III diastolic dysfunction, mid MS with mean gradient 3 mmHg, mild MR, s/p TAVR with mean gradient 19 mmHg, mild TR with PAP 44 mmHg
Echo 10/10/24: EF 60-65%, mild conc LVH, well seated 26mm Pritchard Clarissa 3 TAVR with peak gradient 29mmHg/Mean gradient 18mmHg, mild tricuspid regurgitation, PAP of 60-65 mmHg
Plan:
-Late entry note for 10/10/24
-Patient is anxious for d/c to home 10/10/24. Weight is down 4 lbs overnight and he feels he is ambulating better.
-Patient diuresed with Lasix 40 mg IV daily. Recommend Lasix 40 mg PO daily upon d/c to home, suspect long-term and significant Lasix noncompliance contributed to this acute HF admission.
-Patient declined VN so made an appt to be seen in the cardiology office on 10/15/24 and can reassess diuretic dosing at that time.
-EF preserved by echo and TAVR mean gradient 18 mmHg
-Patient with h/o MV endocarditis in 2021 and completed 6 weeks of antibiotics. He also uses antibiotic prophylaxis for dental visits. No signs/symptoms of recurrent endocarditis. No concerning changes on echo.
-Outpatient dose of Toprol XL 25 mg daily was stopped due to bradycardia. Will reassess HR as an outpatient.
-Outpatient dose of losartan 50 mg daily has been continued.
-Patient is not chronically on aldosterone antagonist or SGLT-2 inhibitor and is not interested in additional medications at this time.
-Patient with known permanent Afib. Outpatient dose of Toprol XL on hold now due to asymptomatic bradycardia.
-Outpatient dose of Xarelto 20 mg daily (CrCl is 63 adjusted for height as calculated by me 10/09/24)
-Stable for d/c to home and cardiology f/u arranged
HPI: Patient came to the ER yesterday with LE edema and knee pain and was admitted with acute HF and consultation to cardiology. Patient was spending time in [place] with his and about 2-3 weeks ago started with increased LE edema and then
increased knee pain. Legs have been heavy and knees hurting to bend and so he missed a curb and tripped fell 2 weeks ago. Patient was seen at an ER in [place] and given oxycodone to help with the pain and is scheduled to see ortho for ongoing
arthritis later this week. Patient came to the ER yesterday because of ongoing pain and he could no longer manage at home. Patient has known HFpEF and missed his Lasix frequently at home. Denies SOB, orthopnea or bloating. Denies chest pain. Patient
also has permanent Afib and is chronically on Toprol XL 25 mg daily and was noted to be bradycardic since admission, but no lightheadedness.
Progress Note - Event Marketing Representative
Subjective
Date of Service: October 10, 2024
Feels well and wants to go home, LE pain is better
Objective
Labs:
10/08/24 11:23
10/10/24 05:38
Labs
Hgb 11.6 g/dL (13.0-18.0) L 10/08/24 11:23
Hct 35.6 % (39.0-52.0) L 10/08/24 11:23
Plt Count 259 10^3/uL (130-400) 10/08/24 11:23
Sodium 141 mmol/L (135-145) 10/10/24 05:38
Potassium 4.1 mmol/L (3.5-5.1) 10/10/24 05:38
BUN 19 mg/dl (9-20) 10/10/24 05:38
Creatinine 1.0 mg/dL (0.7-1.3) 10/10/24 05:38
Glucose 114 mg/dl (70-99) H 10/10/24 05:38
Vital Signs and I&O:
Vital Signs
Temp Pulse Resp BP Pulse Ox
98.0 F 49 16 154/56 97
10/10/24 11:46 10/10/24 11:46 10/10/24 11:46 10/10/24 11:46 10/10/24 13:14
Vital Signs
Temp Pulse Resp BP Pulse Ox
98.0 F 49 16 154/56 97
10/10/24 11:46 10/10/24 11:46 10/10/24 11:46 10/10/24 11:46 10/10/24 13:14
Intake & Output
10/08/24 10/09/24 10/10/24 10/11/24
06:59 06:59 06:59 06:59
Intake Total 680 / 680
Output Total 2375 / 2375 1375 / 1375
Balance -2375 / -2375 -695 / -695
== END 2024-10-10 15:00 | disposition home or self-care (01) | DRG 291 ==
LOC: 4 EAST ACU 18:15
PROVIDERS: Student in an Organized Health Care Education/Training Program; ADMITTING PHYSICIAN Hospitalist; EMERGENCY PHYSICIAN Emergency Medicine; FAMILY PHYSICIAN Family Medicine; OTHER PHYSICIAN Internal Medicine Cardiovascular Disease
DX: I11.0 Hypertensive heart disease with heart failure (principal); I50.33 Acute on chronic diastolic (congestive) heart failure; I48.21 Permanent atrial fibrillation; Z87.891 Personal history of nicotine dependence; Z66 Do not resuscitate; M17.0 Bilateral primary osteoarthritis of knee; M79.89 Other specified soft tissue disorders; Z79.82 Long term (current) use of aspirin; Z91.148 Patient's other noncompliance with medication regimen for other reason; E78.00 Pure hypercholesterolemia, unspecified; I25.10 Atherosclerotic heart disease of native coronary artery without angina pectoris; E11.65 Type 2 diabetes mellitus with hyperglycemia; J44.9 Chronic obstructive pulmonary disease, unspecified; E66.09 Other obesity due to excess calories; Z68.36 Body mass index [BMI] 36.0-36.9, adult; Z79.01 Long term (current) use of anticoagulants; Z79.899 Other long term (current) drug therapy
CPT/HCPCS: 71046; 73564; 80048; 80053; 82962; 83036; 83880; 85025; 93005; 93306; 96374; 97116; 97166; 97530; 99285; Q9950

== ENCOUNTER → 2024-11-28 09:35 | Outpatient (REF) | payer MEDICARE, OTHER, SELFPAY ==
[2024-11-28 12:55] LABS: ALT (SGPT) 16 U/L (0-50); AST (SGOT) 20 U/L (17-59); Albumin 4.0 g/dl (3.5-5.0); Alkaline Phosphatase 86 U/L (38-126); Blood Urea Nitrogen 33 mg/dl (9-20); Calcium 9.1 mg/dl (8.4-10.2); Carbon Dioxide 27 mmol/L (22-30); Chloride 107 mmol/L (98-107); Glucose 122 mg/dl (70-99); Potassium 4.4 mmol/L (3.5-5.1); Sodium 140 mmol/L (135-145); Total Protein 7.2 g/dl (6.3-8.2); eGFR 54.51
[2024-11-28 13:07] LABS: Hematocrit 39.7 % (39.0-52.0); Hemoglobin 12.9 g/dL (13.0-18.0); Mean Corp Hgb Conc. 32.5 g/dL (33.0-37.0); Mean Corpuscular Volume 95.0 fL (80.0-94.0); Nucleated Red Blood Cells % 0 % (-); Platelet Count 264 10^3/uL (130-400); Red Cell Dist. Width 14.9 % (11.5-14.5)
[2024-11-28 13:25] LABS: TSH 2.38 uIU/ml (0.47-4.68)
[2024-11-28 14:58] LABS: Glycohemoglobin (HgbA1c) 6.8 % (4.0-5.6)
[2024-11-28 16:21] LABS: Microalb - Urine Creatinine 208.500 mg/dl
[2024-11-28 16:26] LABS: Microalbumin, Random Urine 8.9 mg/dl (0.6-1.7)
== END ==
LOC: HWLAB 09:35
PROVIDERS: ATTENDING PHYSICIAN Family Medicine; REFERRING PHYSICIAN Specialist
DX: M17.11 Unilateral primary osteoarthritis, right knee (principal); I48.0 Paroxysmal atrial fibrillation; I12.9 Hypertensive chronic kidney disease with stage 1 through stage 4 chronic kidney disease, or unspecified chronic kidney disease; I25.10 Atherosclerotic heart disease of native coronary artery without angina pectoris; G47.33 Obstructive sleep apnea (adult) (pediatric); E11.59 Type 2 diabetes mellitus with other circulatory complications; I50.32 Chronic diastolic (congestive) heart failure; E66.813 Obesity, class 3
CPT/HCPCS: 36415; 80053; 82043; 82570; 83036; 84443; 85025

== ENCOUNTER 2024-12-23 07:15 | Inpatient (IN) | payer MEDICARE, OTHER, SELFPAY ==
[2024-12-04 13:20] VITALS: BMI 33.8
[2024-12-04 13:36] LABS: Hematocrit 38.3 % (39.0-52.0); Hemoglobin 12.5 g/dL (13.0-18.0); Mean Corp Hgb Conc. 32.6 g/dL (33.0-37.0); Mean Corpuscular Volume 95.3 fL (80.0-94.0); Platelet Count 234 10^3/uL (130-400); Red Cell Dist. Width 15.2 % (11.5-14.5)
[2024-12-04 14:00] LABS: ALT (SGPT) 14 U/L (0-50); AST (SGOT) 20 U/L (17-59); Albumin 4.0 g/dl (3.5-5.0); Alkaline Phosphatase 76 U/L (38-126); Blood Urea Nitrogen 29 mg/dl (9-20); Calcium 9.2 mg/dl (8.4-10.2); Carbon Dioxide 25 mmol/L (22-30); Chloride 107 mmol/L (98-107); Estimated Creatinine Clearance 57 ml/min; Glucose 99 mg/dl (70-99); Potassium 4.2 mmol/L (3.5-5.1); Sodium 140 mmol/L (135-145); Total Protein 6.9 g/dl (6.3-8.2); eGFR > 60.00
[2024-12-04 14:24] VITALS: BMI 33.8
--- NOTE | 2024-12-12 10:57 | CM ---
CM spoke with patient's for IA. Patient lives independently with . Patient has had a history of VN/IV infusion, but is currently not on service. Patient has had a history of placement at [facility].
Patient is active with his PCP. Patient has medication coverage. Patient has his outpatient PT appointments made for 12/25 at [facility].
PLAN: Home with outpatient PT.
[2024-12-23] VITALS (11 sets, daily range): BP systolic 100–143; BP diastolic 48–93; PULSE 78; O2SAT 98; BMI 33.8; BMI 34.5
[2024-12-23 07:41] LABS: Glucose - Point of Care 119 mg/dl (70-99)
[2024-12-23] MEDS: TYLENOL 650 MG PO ×3 (07:58→19:55)
[2024-12-23] MEDS: CELEBREX 200 MG PO (07:59)
[2024-12-23] MEDS: NORMOSOL-R/PLASMALYTE-A 1000 IV ×2 (07:59→16:10)
[2024-12-23 09:38] LABS: Glucose - Point of Care 109 mg/dl (70-99)
[2024-12-23] MEDS: NOVOLOG FLEXPEN-MODERATE RESISTANCE SC (11:30)
[2024-12-23 11:40] LABS: Glucose - Point of Care 120 mg/dl (70-99)
--- NOTE | 2024-12-23 13:00 | PTCARENOTE ---
Pt received from the PACU via bed. Transport was w/o incident. Pt is AAOx3, HR sl irreg. w/ murmur. Pt is Sinus Willem on the monitor, HR 50's. Pt's right Knee dressing with moderate amount of drainage noted. Ortho PA expected on surgical floor
shortly to reevaluate. Pt denies pain at this time. Pt denies nausea. VSS, Pt is afebrile. Pt instructed on plan of care. Call thomas is within reach.
--- NOTE | 2024-12-23 13:45 | W.PN.ORTHO ---
Today's Communication / Plan
-
D/c when clinically stable.
Assessment
.
Distal Motor Intact: Yes
Dressing:
Moderate area of bleeding towards inferior end of dressing.
Assessment:
R knee OA s/p R TKA w/ Dr Nolan 12/23/24
DVT prophylaxis - Xarelto at modified dosing, b/l venous foot pumps
- Xarelto 20 mg PO qPM to be resumed POD 3 if hemodynamically stable
Post-op incisional bleeding - will order TXA
HTN - + parameters - monitor BP
CAD, on Aspirin - continue baby ASA without interruption
Permanent atrial fibrillation
Left bundle branch block
- Monitor on tele
- Resume Xarelto as stated above
Chronic diastolic HFpEF
Aortic stenosis, status post TAVR 04/2017
Pulmonary hypertension
- Reduce hourly IVF rate to prevent fluid overload
- Low sodium diet
- Monitor daily weights, I&Os
- Resume Lasix but w/ SBP parameters to prevent fluid overload
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
Strep mutans bacteremia, 02/2021, status post IV ceftriaxone x6 weeks
- Discussed with pharmacy pre-op; IV Ancef should cover
- Would benefit from Cefadroxil upon d/c
Saccular aneurysm - advised f/u with Vascular ([facility]) in near future
- Ensure adequate BP control
COPD per records
NAYAN, no current device
- Monitor O2
- IS
- Duonebs prn
- Consider Decadron
- Add supplemental O2 HS
CKD stage 3 - minimize nephrotoxins
NIDDM, A1c 6.8 - monitor BS
- Diabetic, carb controlled diet
- Resume Metformin
- Add SSI AC, low dose Lantus HS to accommodate for potential BS elevations d/t surgical stress, IV steroids in OR
GERD - add Pepcid HS
Vascular dementia, on Memantine - minimize opioids as able (reportedly tolerated Oxy previously)
Ambulatory dysfunction - on fall precautions
Iron deficiency anemia, on iron supplementation - non-invasive hgb in AM
- Continue oral iron
Hypercholesterolemia
Mild mitral regurgitation
Chronic venous insufficiency
Remote diverticulitis
Cholelithiasis, asymptomatic
Post-TAVR left MCA CVA, 04/2017, with residual aphasia
Benign essential tremor
Multilevel degenerative disc disease
Scoliosis
Basal cell carcinoma, status post Mohs
Macular degeneration
Hearing impairment bilaterally
Obesity, BMI 33.8
Remote history of tobacco abuse
Plan
.
Surgery / Date: R [place] w/ Dr Nolan 12/23/24
DVT Prophylaxis: Other (Xarelto)
Activity:
Out of bed.
PT/OT
Discharge Plan: Home w/ Outpatient PT
Subjective
.
.:
Patient resting comfortably in his bed.
R knee pain currently tolerable.
Denies any new signficant complaints.
Vital Signs and Labs
.
Vital Signs and Labs:
Lab Results
12/04/24 12:40
12/04/24 12:40
Temp Pulse Resp BP Pulse Ox
97.7 F 71 16 121/68 96
12/23/24 13:00 12/23/24 13:00 12/23/24 13:00 12/23/24 13:00 12/23/24 13:00
Physical Exam
-
HEENT: No pallor, cyanosis, or jaundice. Throat clear.
NECK: Supple. No JVD.
RESPIRATORY: Lungs clear to auscultation.
CVS: S1, S2 normal. RRR.�
ABDOMEN: Soft, non-tender. No distension. Obese.
EXTREMITIES: Strength equal, no calf pain with palpation/dorsiflexion. Calves soft.
UTILIZATION MANAGEMENT RN: AOx3. No focal deficits. probation and patrol agent grossly intact
[2024-12-23] MEDS: GLUCOPHAGE PO ×2 (16:07→16:08)
[2024-12-23] MEDS: LIPITOR PO (16:08)
[2024-12-23] MEDS: TYLENOL PO ×2 (16:09→23:48)
[2024-12-23] MEDS: LIPITOR 40 MG PO (16:29)
[2024-12-23 17:47] LABS: Glucose - Point of Care 310 mg/dl (70-99)
[2024-12-23] MEDS: ANCEF 5 IV (18:27)
[2024-12-23] MEDS: LOW STRENGTH ASPIRIN 81 MG PO (18:27)
[2024-12-23] MEDS: XARELTO 10 MG PO (18:27)
[2024-12-23] MEDS: NOVOLOG FLEXPEN-MODERATE RESISTANCE 7 UNITS SC (18:28)
[2024-12-23] MEDS: BACTROBAN 2% OINTMENT 1 APPLIC NASAL (19:52)
[2024-12-23] MEDS: SENOKOT 17.2 MG PO (19:52)
[2024-12-23] MEDS: CYKLOKAPRON 650 MG PO (19:52)
[2024-12-23] MEDS: COLACE 100 MG PO (19:52)
[2024-12-23 21:21] LABS: Glucose - Point of Care 285 mg/dl (70-99)
[2024-12-23] MEDS: LANTUS 0.05 UNITS SC (21:26)
[2024-12-23] MEDS: NEURONTIN 200 MG PO (21:26)
[2024-12-23] MEDS: PEPCID 20 MG PO (21:26)
[2024-12-24] MEDS: ANCEF 5 IV (02:05)
[2024-12-24 03:10] VITALS: BP 122/64
[2024-12-24] MEDS: TYLENOL PO (04:37)
[2024-12-24 06:00] VITALS: BMI 34.2
[2024-12-24 07:10] VITALS: BP 125/62
[2024-12-24 07:35] LABS: Glucose - Point of Care 145 mg/dl (70-99)
[2024-12-24] MEDS: BACTROBAN 2% OINTMENT 1 APPLIC NASAL (08:33)
[2024-12-24] MEDS: NOVOLOG FLEXPEN-MODERATE RESISTANCE SC ×2 (08:33→11:29)
[2024-12-24] MEDS: COLACE 100 MG PO (08:35)
[2024-12-24] MEDS: CYKLOKAPRON 650 MG PO (08:35)
[2024-12-24] MEDS: SENOKOT 17.2 MG PO (08:35)
[2024-12-24] MEDS: TYLENOL 650 MG PO ×2 (08:35→12:07)
[2024-12-24] MEDS: ROXICODONE 5 MG PO ×2 (08:38→12:40)
[2024-12-24 09:51] VITALS: BP 101/57; PULSE 63; O2SAT 98
--- NOTE | 2024-12-24 10:51 | W.PN.ORTHO ---
Today's Communication / Plan
-
D/c today since clinically stable, did well w/ OT and PT.
Assessment
.
Dressing:
Small areas of old incisional bleeding, improved since yesterday after pressure CHANG wrap. Did change this AM - now C/D/I.
Assessment:
R knee OA s/p R TKA w/ Dr Nolan 12/23/24
DVT prophylaxis - Xarelto at modified dosing, b/l venous foot pumps
- Xarelto 20 mg PO qPM to be resumed POD 3 since hemodynamically stable
Post-op incisional bleeding - s/p TXA, pressure CHANG wrap - improved
HTN - + parameters - BPs overall stable
CAD, on Aspirin - continue baby ASA without interruption
Permanent atrial fibrillation
Left bundle branch block
- Rhythm demonstrating rate controlled a fib. No significant pauses >3-4 secs. Pt asymptomatic
- EKG POD 1: A fib w/ PVCs, LBBB - stable
- Resume Xarelto as stated above
Chronic diastolic HFpEF
Aortic stenosis, status post TAVR 04/2017
Pulmonary hypertension
- Reduced hourly IVF rate to prevent fluid overload
- Low sodium diet
- Daily weight, I&Os stable
- Resumed Lasix but w/ SBP parameters to prevent post-surgical hypotension
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
Strep mutans bacteremia, 02/2021, status post IV ceftriaxone x6 weeks
- Discussed with pharmacy pre-op; IV Ancef should cover
- Would benefit from Cefadroxil upon d/c
Saccular aneurysm - advised f/u with Vascular ([facility]) in near future
- Adequate BP control maintained
COPD per records
NAYAN, no current device
- O2 stable on RA
- IS
- Duonebs prn
- Consider Decadron
- S/p supplemental O2 HS
CKD stage 3 - minimized nephrotoxins
NIDDM, A1c 6.8 - BS readings initially elevated but improved w/ measures below
- Diabetic, carb controlled diet
- Resumed Metformin
- Add SSI AC, low dose Lantus HS to accommodate for potential BS elevations d/t surgical stress, IV steroids in OR
GERD - added Pepcid HS
Vascular dementia, on Memantine - minimize opioids as able. Of note, is tolerating Oxycodone
Ambulatory dysfunction - on fall precautions
Iron deficiency anemia, on iron supplementation - non-invasive hgb 11.4 this AM
- Asymptomatic, hemodynamically stable
- Continue oral iron
Hypercholesterolemia
Mild mitral regurgitation
Chronic venous insufficiency
Remote diverticulitis
Cholelithiasis, asymptomatic
Post-TAVR left MCA CVA, 04/2017, with residual aphasia
Benign essential tremor
Multilevel degenerative disc disease
Scoliosis
Basal cell carcinoma, status post Mohs
Macular degeneration
Hearing impairment bilaterally
Obesity, BMI 33.8
Remote history of tobacco abuse
Plan
.
Surgery / Date: R [place] w/ Dr Nolan 12/23/24
DVT Prophylaxis: Other (Xarelto )
Activity:
Out of bed.
PT/OT
Discharge Plan: Home w/ Outpatient PT
Subjective
.
.:
Patient resting comfortably in his chair.
R knee pain tolerable w/ current pain meds.
Denies any new significant complaints.
Eager for potential d/c today.
Vital Signs and Labs
.
Vital Signs and Labs:
Lab Results
12/04/24 12:40
12/04/24 12:40
Temp Pulse Resp BP Pulse Ox
98 F 60 18 125/62 96
12/24/24 07:10 12/24/24 07:10 12/24/24 07:10 12/24/24 07:10 12/24/24 07:10
Non-invasive Hgb result: 11.4
Physical Exam
-
HEENT: No pallor, cyanosis, or jaundice. Throat clear.
NECK: Supple. No JVD.
RESPIRATORY: Lungs clear to auscultation.
CVS: S1, S2 normal. RRR.�
ABDOMEN: Soft, non-tender. No distension. Obese.
EXTREMITIES: Expected post-surgical R knee edema. Strength equal, no calf pain with palpation/dorsiflexion. Calves soft.
FISHER TROT LINE: AOx3. No focal deficits. housing relocation grossly intact
[2024-12-24 11:10] VITALS: BP 113/66
[2024-12-24 11:29] LABS: Glucose - Point of Care 141 mg/dl (70-99)
[2024-12-24] MEDS: LIPITOR 40 MG PO (12:06)
--- NOTE | 2024-12-24 12:06 | W.DS.TRANS ---
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
-
Discharge Instructions:
Discharge Diagnosis/Procedures R knee OA s/p R TKA w/ Dr Nolan 12/23/24
Diet Diabetic, Carb Controlled
Additional Diets Adequate hydration, minimize opioids, and wear
TEDs stockings to prevent low blood pressure/
dizziness.
Activity As tolerated,With Walker
Driving Restrictions Not until seen by your Dr
Bathing Restrictions OK to Shower
Other Services PT
Wound Care Dressing to be removed 1 week post-surgery.
[place] to be removed at 2 week follow-up with
surgeon's office.
Specialty Instructions Weigh Daily
Instructions:
Stand-Alone Forms: Total Hip/Knee Replacement D/C
Changes to Home Medications: Yes
Discharge Medications:
DC Medications w/original date entered in [employer]
aspirin 81 mg chewable tablet 81 mg PO .AFTERNOON Blood clot prevention/tx 11/09/20
atorvastatin 40 mg tablet 40 mg PO .AFTERNOON High cholesterol 11/09/20
rivaroxaban 20 mg tablet (Xarelto) 20 mg PO .AFTERNOON Blood clot prevention/tx 11/09/20
Held on 12/24/24. Instructions: Resume on 12/26/24.
ferrous sulfate 325 mg (65 mg iron) tablet,delayed release 325 mg PO .AFTERNOON Supplement 03/28/22
memantine 5 mg tablet 5 mg PO .AFTERNOON Mental Health/Anxiety 10/08/24
metformin 500 mg tablet 500 mg PO .AFTERNOON Diabetes 10/08/24
mupirocin 2 % topical ointment 1 applic intranasal BID #1 tube 12/04/24
Saccharomyces boulardii 250 mg capsule (Florastor) 250 mg PO DAILY #7 caps 12/24/24
acetaminophen 500 mg tablet (Tylenol Extra Strength) 1,000 mg (2 x 500 mg) PO Q6H #60 tabs 12/24/24
amlodipine 5 mg tablet 5 mg PO .AFTERNOON Blood pressure #1 tab 12/24/24
cefadroxil 500 mg capsule 500 mg PO DAILY #7 caps 12/24/24
docusate sodium 100 mg capsule 100 mg PO BID #30 caps 12/24/24
famotidine 20 mg tablet 20 mg PO HS #30 tabs 12/24/24
furosemide 40 mg tablet 40 mg PO .AFTERNOON Heart Failure #1 tab 12/24/24
gabapentin 100 mg capsule 200 mg (2 x 100 mg) PO HS neuropathic pain/sleep #20 caps 12/24/24
losartan 50 mg tablet 50 mg PO .AFTERNOON Blood pressure #1 tab 12/24/24
magnesium hydroxide 400 mg/5 mL oral suspension (Milk of Magnesia) 15 ml PO HS PRN Constipation #3,780 mL 12/24/24
ondansetron HCl 4 mg tablet 4 mg PO Q6H PRN nausea and vomiting #30 tabs 12/24/24
oxycodone 5 mg tablet 5 - 10 mg (1 - 2 x 5 mg) PO Q6H PRN moderate-severe pain #30 tabs 12/24/24
rivaroxaban 10 mg tablet (Xarelto) 10 mg PO QPM #2 tabs 12/24/24
sennosides 8.6 mg tablet (Ashanti-severiano) 17.2 mg (2 x 8.6 mg) PO BID #30 tabs 12/24/24
Home Medication Changes
Saccharomyces boulardii 250 mg capsule (Florastor) 250 mg PO DAILY #7 caps 12/24/24
acetaminophen 500 mg tablet (Tylenol Extra Strength) 1,000 mg (2 x 500 mg) PO Q6H #60 tabs 12/24/24
cefadroxil 500 mg capsule 500 mg PO DAILY #7 caps 12/24/24
docusate sodium 100 mg capsule 100 mg PO BID #30 caps 12/24/24
famotidine 20 mg tablet 20 mg PO HS #30 tabs 12/24/24
gabapentin 100 mg capsule 200 mg (2 x 100 mg) PO HS neuropathic pain/sleep #20 caps 12/24/24
ondansetron HCl 4 mg tablet 4 mg PO Q6H PRN nausea and vomiting #30 tabs 12/24/24
oxycodone 5 mg tablet 5 - 10 mg (1 - 2 x 5 mg) PO Q6H PRN moderate-severe pain #30 tabs 12/24/24
rivaroxaban 10 mg tablet (Xarelto) 10 mg PO QPM #2 tabs 12/24/24 - until POD 3
sennosides 8.6 mg tablet (Ashanti-severiano) 17.2 mg (2 x 8.6 mg) PO BID #30 tabs 12/24/24
Pending Results: No
[2024-12-24] MEDS: GLUCOPHAGE 500 MG PO (12:07)
[2024-12-24] MEDS: NAMENDA 5 MG PO (12:09)
[2024-12-24] MEDS: FEOSOL 325 MG PO (12:09)
== END 2024-12-24 13:02 | disposition home or self-care (01) | DRG 470 ==
LOC: 2 SOUTH 07:15
PROVIDERS: ADMITTING PHYSICIAN Specialist; FAMILY PHYSICIAN Family Medicine; REFERRING PHYSICIAN Internal Medicine Cardiovascular Disease
PROC: 0SRC0J9 Replacement of Right Knee Joint with Synthetic Substitute, Cemented, Open Approach (ICD-10-PCS; 2024-12-23)
DX: M17.11 Unilateral primary osteoarthritis, right knee (principal); I48.21 Permanent atrial fibrillation; I50.32 Chronic diastolic (congestive) heart failure; I13.0 Hypertensive heart and chronic kidney disease with heart failure and stage 1 through stage 4 chronic kidney disease, or unspecified chronic kidney disease; R47.01 Aphasia; E66.9 Obesity, unspecified; Z68.33 Body mass index [BMI] 33.0-33.9, adult; I25.10 Atherosclerotic heart disease of native coronary artery without angina pectoris; I44.7 Left bundle-branch block, unspecified; N18.30 Chronic kidney disease, stage 3 unspecified; E11.22 Type 2 diabetes mellitus with diabetic chronic kidney disease; I27.20 Pulmonary hypertension, unspecified; G47.33 Obstructive sleep apnea (adult) (pediatric); Z95.2 Presence of prosthetic heart valve; I35.0 Nonrheumatic aortic (valve) stenosis; J44.9 Chronic obstructive pulmonary disease, unspecified; F01.50 Vascular dementia, unspecified severity, without behavioral disturbance, psychotic disturbance, mood disturbance, and anxiety; D50.9 Iron deficiency anemia, unspecified; Z79.82 Long term (current) use of aspirin; K21.9 Gastro-esophageal reflux disease without esophagitis; E78.00 Pure hypercholesterolemia, unspecified; K80.20 Calculus of gallbladder without cholecystitis without obstruction; M41.9 Scoliosis, unspecified; H91.93 Unspecified hearing loss, bilateral; H35.30 Unspecified macular degeneration; Z86.73 Personal history of transient ischemic attack (TIA), and cerebral infarction without residual deficits; I87.2 Venous insufficiency (chronic) (peripheral); G25.0 Essential tremor; Z87.891 Personal history of nicotine dependence; Z79.01 Long term (current) use of anticoagulants; Z79.84 Long term (current) use of oral hypoglycemic drugs
CPT/HCPCS: 36415; 73560; 80053; 82962; 85027; 87070; 93005; 97116; 97162; 97166; 97530; 97535; C1713; C1776

== ENCOUNTER → 2025-01-06 14:42 | Outpatient (REF) | payer MEDICARE, OTHER, SELFPAY | LOC: RAD 14:42 | PROVIDERS: ATTENDING PHYSICIAN Physician Assistant; FAMILY PHYSICIAN Family Medicine | DX: R60.0 Localized edema (principal); Z96.651 Presence of right artificial knee joint | CPT/HCPCS: 93971 ==

== ENCOUNTER 2025-03-10 06:20 | Day surgery (SDC) | payer MEDICARE, OTHER, SELFPAY ==
[2025-03-07 14:08] VITALS: BMI 34.0
[2025-03-10 10:18] LABS: Glucose - Point of Care 126 mg/dl (70-99)
== END 2025-03-10 12:33 | disposition home or self-care (01) ==
LOC: GI 06:20
PROVIDERS: ATTENDING PHYSICIAN Internal Medicine
DX: D50.9 Iron deficiency anemia, unspecified (principal); K64.8 Other hemorrhoids; K57.30 Diverticulosis of large intestine without perforation or abscess without bleeding; K63.89 Other specified diseases of intestine; K22.2 Esophageal obstruction; K29.70 Gastritis, unspecified, without bleeding; K26.9 Duodenal ulcer, unspecified as acute or chronic, without hemorrhage or perforation; D12.5 Benign neoplasm of sigmoid colon; K52.9 Noninfective gastroenteritis and colitis, unspecified; K29.80 Duodenitis without bleeding
CPT/HCPCS: 45380; 43239; 82962; 88305; 88342

== ENCOUNTER → 2025-03-24 11:02 | Outpatient (REF) | payer MEDICARE, OTHER, SELFPAY ==
[2025-03-24 16:29] LABS: Iron 40 ug/dl (49-181)
[2025-03-24 16:37] LABS: Hematocrit 31.2 % (39.0-52.0); Hemoglobin 9.8 g/dL (13.0-18.0); Mean Corp Hgb Conc. 31.4 g/dL (33.0-37.0); Mean Corpuscular Volume 97.2 fL (80.0-94.0); Nucleated Red Blood Cells % 0 % (-); Platelet Count 290 10^3/uL (130-400); Red Cell Dist. Width 16.2 % (11.5-14.5)
[2025-03-24 16:40] LABS: Total Iron Binding Capacity 322 ug/dl (261-462)
[2025-03-24 17:07] LABS: Ferritin 32.0 ng/ml (17.9-464.0)
== END ==
LOC: HWLAB 11:02
PROVIDERS: ATTENDING PHYSICIAN Internal Medicine; FAMILY PHYSICIAN Family Medicine
DX: D64.9 Anemia, unspecified (principal)
CPT/HCPCS: 36415; 82728; 83540; 83550; 85025

== ENCOUNTER → 2025-04-07 10:17 | Outpatient (REF) | payer MEDICARE, OTHER, SELFPAY ==
[2025-04-07 12:31] LABS: Hematocrit 34.3 % (39.0-52.0); Hemoglobin 10.6 g/dL (13.0-18.0); Mean Corp Hgb Conc. 30.9 g/dL (33.0-37.0); Mean Corpuscular Volume 100.3 fL (80.0-94.0); Nucleated Red Blood Cells % 0 % (-); Platelet Count 229 10^3/uL (130-400); Red Cell Dist. Width 16.5 % (11.5-14.5)
[2025-04-07 13:06] LABS: Iron 43 ug/dl (49-181)
[2025-04-07 13:22] LABS: Total Iron Binding Capacity 320 ug/dl (261-462)
[2025-04-07 13:45] LABS: Ferritin 32.4 ng/ml (17.9-464.0)
== END ==
LOC: HWLAB 10:17
PROVIDERS: ATTENDING PHYSICIAN Internal Medicine
DX: D64.9 Anemia, unspecified (principal); I63.9 Cerebral infarction, unspecified
CPT/HCPCS: 36415; 82728; 83540; 83550; 85025

== ENCOUNTER → 2025-04-21 09:22 | Outpatient (REF) | payer MEDICARE, OTHER, SELFPAY ==
[2025-04-21 10:31] LABS: Hematocrit 35.4 % (39.0-52.0); Hemoglobin 11.1 g/dL (13.0-18.0); Mean Corp Hgb Conc. 31.4 g/dL (33.0-37.0); Mean Corpuscular Volume 97.0 fL (80.0-94.0); Nucleated Red Blood Cells % 0 % (-); Platelet Count 238 10^3/uL (130-400); Red Cell Dist. Width 15.8 % (11.5-14.5)
[2025-04-21 11:37] LABS: Iron 35 ug/dl (49-181)
[2025-04-21 11:48] LABS: Total Iron Binding Capacity 296 ug/dl (261-462)
[2025-04-21 12:07] LABS: Ferritin 51.1 ng/ml (17.9-464.0)
[2025-04-21 12:39] LABS: Folate 8.4 ng/ml (2.76-20); Vitamin B12 299 pg/ml (239-931)
== END ==
LOC: REG 09:22
PROVIDERS: ATTENDING PHYSICIAN Internal Medicine; FAMILY PHYSICIAN Family Medicine
DX: D64.9 Anemia, unspecified (principal); D51.9 Vitamin B12 deficiency anemia, unspecified
CPT/HCPCS: 36415; 82607; 82728; 82746; 83540; 83550; 85025

== ENCOUNTER 2025-05-27 06:19 | Day surgery (SDC) | payer MEDICARE, OTHER, SELFPAY ==
[2025-05-27 09:00] LABS: Glucose - Point of Care 105 mg/dl (70-99)
== END 2025-05-27 10:57 | disposition home or self-care (01) ==
LOC: GI 06:19
PROVIDERS: ATTENDING PHYSICIAN Internal Medicine
DX: D50.9 Iron deficiency anemia, unspecified (principal); K57.30 Diverticulosis of large intestine without perforation or abscess without bleeding; D12.5 Benign neoplasm of sigmoid colon; D12.3 Benign neoplasm of transverse colon; K52.9 Noninfective gastroenteritis and colitis, unspecified
CPT/HCPCS: 45385; 45381; 82962; 88305